=== PATIENT | female | born 1975 | race American Indian/Alaskan Native ===

== ENCOUNTER 2018-10-06 01:38 | Emergency (ER) | payer MEDICAID, OTHER ==
[2018-10-06 01:45] VITALS: BP 141/90
[2018-10-06] MEDS ORDERED: DECADRON IV ONE (03:30)
[2018-10-06] MEDS ORDERED: BICILLIN L-A IM STA (03:30)
[2018-10-06] MEDS ORDERED: NACL 0.9% 1000 ML 1,000 ML IV ONE ×2 (03:30→05:00)
--- NOTE | 2018-10-06 03:34 | Emergency Department Report ---
ED General Adult HPI - General Chief complaint: Sore Throat Stated complaint: PAIN IN THROAT Time Seen by Provider: 10/06/18 03:22 Source: patient Mode of arrival: Ambulatory Limitations: No Limitations - History of Present Illness Severity scale (0 -10): 10 - Related Data Home Medications Medication Instructions Recorded Confirmed Last Taken Ferrous Sulfate [Feosol] 325 mg PO BID 09/05/16 09/05/16 09/05/16 Gabapentin [Neurontin] 800 mg PO Q8H 09/05/16 09/05/16 09/05/16 Lisinopril/Hydrochlorothiazide 1 tab PO QDAY 09/05/16 09/05/16 09/05/16 [Zestoretic 20-25 mg] Tizanidine HCl [tiZANidine] 4 mg PO 09/05/16 09/05/16 amLODIPine [Norvasc] 10 mg PO DAILY 09/05/16 09/05/16 09/05/16 Previous Rx's Medication Instructions Recorded Last Taken Type Ondansetron [Zofran TAB] 4 mg PO Q8HR PRN #10 tablet 09/05/16 Unknown Rx Chlorhexidine Mouthwash [Peridex] 15 ml MM BID #473 bottle 10/06/18 Unknown Rx Lidocaine Viscous 2% 5 ml MM Q3H PRN #120 udc 10/06/18 Unknown Rx Allergies Allergy/AdvReac Type Severity Reaction Status Date / Time No Known Allergies Allergy Unverified 10/28/13 09:04 ED Review of Systems ROS: Stated complaint: PAIN IN THROAT Other details as noted in HPI Constitutional: denies: chills, fever Eyes: denies: eye pain, eye discharge, vision change ENT: throat pain. denies: ear pain Respiratory: denies: cough, shortness of breath, wheezing Cardiovascular: denies: chest pain, palpitations Endocrine: no symptoms reported. denies: flushing, intolerance to cold, intolerance to heat, increased thirst, increased urine, unexplained weight gain Gastrointestinal: denies: abdominal pain, nausea, diarrhea Genitourinary: denies: urgency, dysuria, discharge Musculoskeletal: denies: back pain, joint swelling, arthralgia Skin: denies: rash, lesions Neurological: denies: headache, weakness, paresthesias Psychiatric: denies: anxiety, depression Hematological/Lymphatic: denies: easy bleeding, easy bruising ED Past Medical Hx - Past Medical History Previous Medical History?: Yes Hx Hypertension: Yes - Surgical History Past Surgical History?: Yes Additional Surgical History: spinal surgery, 2010 - Social History Smoking Status: Never Smoker Substance Use Type: None - Medications Home Medications: Home Medications Medication Instructions Recorded Confirmed Last Taken Type Ferrous Sulfate [Feosol] 325 mg PO BID 09/05/16 09/05/16 09/05/16 History Gabapentin [Neurontin] 800 mg PO Q8H 09/05/16 09/05/16 09/05/16 History Lisinopril/Hydrochlorothiazide 1 tab PO QDAY 09/05/16 09/05/16 09/05/16 History [Zestoretic 20-25 mg] Ondansetron [Zofran TAB] 4 mg PO Q8HR PRN #10 tablet 09/05/16 Unknown Rx Tizanidine HCl [tiZANidine] 4 mg PO 09/05/16 09/05/16 History amLODIPine [Norvasc] 10 mg PO DAILY 09/05/16 09/05/16 09/05/16 History Chlorhexidine Mouthwash [Peridex] 15 ml MM BID #473 bottle 10/06/18 Unknown Rx Lidocaine Viscous 2% 5 ml MM Q3H PRN #120 udc 10/06/18 Unknown Rx ED Physical Exam - General Limitations: No Limitations General appearance: alert, in no apparent distress - Head Head exam: Present: atraumatic, normocephalic - Eye Eye exam: Present: normal appearance, PERRL, EOMI Pupils: Present: normal accommodation - ENT ENT exam: Present: normal exam, normal orophraynx, mucous membranes moist, TM's normal bilaterally, other (predilection red with some swelling and a daily noted. Airway is patent. Tongue and uvula are midline. No abscess formation is noted.) - Neck Neck exam: Present: normal inspection, tenderness, lymphadenopathy. Absent: meningismus - Respiratory Respiratory exam: Present: normal lung sounds bilaterally. Absent: respiratory distress, rales, rhonchi, accessory muscle use, decreased breath sounds - Cardiovascular Cardiovascular Exam: Present: regular rate, normal rhythm. Absent: systolic murmur, diastolic murmur, rubs, gallop - GI/Abdominal GI/Abdominal exam: Present: soft, normal bowel sounds. Absent: distended, tenderness, rebound, hyperactive bowel sounds, hypoactive bowel sounds, bruit - Extremities Exam Extremities exam: Present: normal inspection, full ROM, normal capillary refill - Back Exam Back exam: Present: normal inspection, full ROM. Absent: CVA tenderness (R), CVA tenderness (L) - Neurological Exam Neurological exam: Present: alert, oriented X3, CN II-XII intact, normal gait - Psychiatric Psychiatric exam: Present: normal affect, normal mood. Absent: flat affect, manic - Skin Skin exam: Present: warm, dry, intact, normal color. Absent: rash ED Course Vital Signs 10/06/18 01:43 Temperature 99.1 F Pulse Rate 136 H Respiratory 18 Rate Blood Pressure 141/90 O2 Sat by Pulse 100 Oximetry Critical care attestation.: If time is entered above; I have spent that time in minutes in the direct care of this critically ill patient, excluding procedure time. ED Disposition Clinical Impression: Exudative pharyngitis Disposition: DC-01 TO HOME OR SELFCARE Is pt being admited?: No Does the pt Need Aspirin: No Condition: Stable Instructions: Pharyngitis (ED) Referrals: STEVEN FLORES MD [Primary Care Provider] - 3-5 Days
--- NOTE | 2018-10-06 04:57 | Emergency Department Report ---
Blank Doc - Documentation Documentation: 43-year-old -H[place] female with a past medical history of hypertension and deficiency anemia. Presents to the emergency department complaining of a few day history of progressively worsening odynophagia and dysphagia which is worsening with eating and with rest. Pain is dull and throbbing and nonradiating. Does have sick contacts, denies any foreign travel. No nausea, vomiting, sweats, chills, hemoptysis, hematemesis, hematochezia. No voice change.
[2018-10-06] MEDS ORDERED: TORADOL IV ONE (05:57)
[2018-10-06] MEDS ORDERED: TORADOL ONE (05:57)
== END 2018-10-06 06:05 | disposition home or self-care (01) ==
LOC: ED 01:38
DX: J02.9 Acute pharyngitis, unspecified (principal); I10 Essential (primary) hypertension
CPT/HCPCS: 87430; 96372; 96374; 96375; 99283; J0561; J1100; J1885; J7030

== ENCOUNTER 2019-09-10 14:27 | Emergency (ER) | payer MEDICAID ==
--- NOTE | 2019-09-10 14:41 | Event Note ---
ED Screening Note Date of service: 09/10/19 Time: 14:37 ED Screening Note: This is a 44 y.o. F. that presents to the ER after syncopal episode at home after grocery shopping. PMH pre-diabetes, HTN, anemia, and chronic back pain This initial assessment/diagnostic orders/clinical plan/treatment(s) is/are subject to change based on patients health status, clinical progression and re- assessment by fellow clinical providers in the ED. Further treatment and workup at subsequent clinical providers discretion. Patient/guardian urged not to elope from the ED as their condition may be serious if not clinically assessed and managed. Initial orders include: Labs Orthostatic VS EKG
[2019-09-10] MEDS ORDERED: SODIUM CHLORIDE 0.9% 1000 ML 1,000 ML IV ONE ×4 (14:49→16:49)
[2019-09-10] MEDS ORDERED: ONDANSETRON 4 MG/2 ML INJ IV ONE (14:49)
--- NOTE | 2019-09-10 14:52 | Emergency Department Report ---
ED General Adult HPI - General Chief complaint: Syncope Stated complaint: N/V/WEAKNESS Time Seen by Provider: 09/10/19 14:37 Source: patient Mode of arrival: Wheelchair Limitations: No Limitations - History of Present Illness Initial comments: Patient is a 44-year-old F [place] female who is presenting status post syncopal episode. Patient states that she woke up feeling fine this morning. When she went to the grocery store and while there began feeling weakness and dizziness. When she got back home she sat down and was feeling extremely fatigued. She tried to get up at one point and her mother noted that she had a syncopal episode. Patient had one episode of nausea vomiting after this episode. Paramedics were called to transport patient to the emergency department. Patient denies any fever chills cough cold congestion or abdominal pain. Patient states she has not had any signs of infection to her knowledge. Patient does have a history of hypertension and anemia however she states that she does not have a history of heavy periods and is not on her menses currently. Patient states she does not know why she has a history of anemia but that she is just on iron pills. Patient denies overdosing on her blood pressure medications. Patient states she has some persistent shortness of breath at this time but in general just feels very weak. Severity scale (0 -10): 0 - Related Data Home Medications Medication Instructions Recorded Confirmed Last Taken Ferrous Sulfate [Feosol] 325 mg PO BID 09/05/16 09/05/16 09/05/16 Gabapentin [Neurontin] 800 mg PO Q8H 09/05/16 09/05/16 09/05/16 Lisinopril/Hydrochlorothiazide 1 tab PO QDAY 09/05/16 09/05/16 09/05/16 [Zestoretic 20-25 mg] Tizanidine HCl [tiZANidine] 4 mg PO 09/05/16 09/05/16 amLODIPine [Norvasc] 10 mg PO DAILY 09/05/16 09/05/16 09/05/16 Previous Rx's Medication Instructions Recorded Last Taken Type Ondansetron [Zofran TAB] 4 mg PO Q8HR PRN #10 tablet 09/05/16 Unknown Rx Chlorhexidine Mouthwash [Peridex] 15 ml MM BID #473 bottle 10/06/18 Unknown Rx Lidocaine Viscous 2% 5 ml MM Q3H PRN #120 udc 10/06/18 Unknown Rx Allergies Allergy/AdvReac Type Severity Reaction Status Date / Time No Known Allergies Allergy Unverified 10/28/13 09:04 ED Review of Systems ROS: Stated complaint: N/V/WEAKNESS Other details as noted in HPI Comment: All other systems reviewed and negative ED Past Medical Hx - Past Medical History Previous Medical History?: Yes Hx Hypertension: Yes Hx Diabetes: Yes (pre) - Surgical History Past Surgical History?: Yes Additional Surgical History: spinal surgery, 2009 - Social History Smoking Status: Never Smoker Substance Use Type: None - Medications Home Medications: Home Medications Medication Instructions Recorded Confirmed Last Taken Type Ferrous Sulfate [Feosol] 325 mg PO BID 09/05/16 09/05/16 09/05/16 History Gabapentin [Neurontin] 800 mg PO Q8H 09/05/16 09/05/16 09/05/16 History Lisinopril/Hydrochlorothiazide 1 tab PO QDAY 09/05/16 09/05/16 09/05/16 History [Zestoretic 20-25 mg] Ondansetron [Zofran TAB] 4 mg PO Q8HR PRN #10 tablet 09/05/16 Unknown Rx Tizanidine HCl [tiZANidine] 4 mg PO 09/05/16 09/05/16 History amLODIPine [Norvasc] 10 mg PO DAILY 09/05/16 09/05/16 09/05/16 History Chlorhexidine Mouthwash [Peridex] 15 ml MM BID #473 bottle 10/06/18 Unknown Rx Lidocaine Viscous 2% 5 ml MM Q3H PRN #120 udc 10/06/18 Unknown Rx ED Physical Exam - General Limitations: No Limitations General appearance: alert, lethargic, other (Appears pale) - Head Head exam: Present: atraumatic, normocephalic - Eye Eye exam: Present: normal appearance, PERRL, EOMI - ENT ENT exam: Present: mucous membranes moist - Neck Neck exam: Present: normal inspection - Respiratory Respiratory exam: Present: normal lung sounds bilaterally. Absent: respiratory distress, wheezes, rales, rhonchi - Cardiovascular Cardiovascular Exam: Present: regular rate, normal rhythm, normal heart sounds. Absent: systolic murmur, diastolic murmur, rubs, gallop - GI/Abdominal GI/Abdominal exam: Present: soft, normal bowel sounds. Absent: distended, tenderness, guarding, rebound - Extremities Exam Extremities exam: Present: normal inspection - Back Exam Back exam: Present: normal inspection - Neurological Exam Neurological exam: Present: alert, oriented X3 - Psychiatric Psychiatric exam: Present: normal affect, normal mood - Skin Skin exam: Present: warm, dry, intact, normal color. Absent: rash ED Course Vital Signs 09/10/19 09/10/19 09/10/19 14:32 15:43 16:00 Temperature 97.6 F 98.6 F 98.5 F Pulse Rate 72 62 64 Respiratory 18 16 16 Rate Blood Pressure 66/40 78/62 80/62 [Left] Blood Pressure 82/40 [Right] O2 Sat by Pulse 98 96 96 Oximetry 09/10/19 09/10/19 16:56 18:52 Temperature Pulse Rate 74 80 Respiratory 16 16 Rate Blood Pressure 105/53 130/62 [Left] Blood Pressure [Right] O2 Sat by Pulse 95 95 Oximetry ED Medical Decision Making - Lab Data Result diagrams: 09/10/19 15:08 09/10/19 15:08 Lab Results 09/10/19 09/10/19 09/10/19 Range/Units 14:43 15:08 15:08 WBC 8.2 (4.5-11.0) K/mm3 RBC 3.98 (3.65-5.03) M/mm3 Hgb 8.1 L (10.1-14.3) gm/dl Hct 26.7 L (30.3-42.9) % MCV 67 L (79-97) fl MCH 20 L (28-32) pg MCHC 30 (30-34) % RDW 21.0 H (13.2-15.2) % Plt Count 417 (140-440) K/mm3 Lymph % (Auto) 25.3 (13.4-35.0) % Glades % (Auto) 6.0 (0.0-7.3) % Eos % (Auto) 1.3 (0.0-4.3) % Baso % (Auto) 0.4 (0.0-1.8) % Lymph # 2.1 (1.2-5.4) K/mm3 Glades # 0.5 (0.0-0.8) K/mm3 Eos # 0.1 (0.0-0.4) K/mm3 Baso # 0.0 (0.0-0.1) K/mm3 Seg Neutrophils % 67.0 (40.0-70.0) % Seg Neutrophils # 5.5 (1.8-7.7) K/mm3 Sodium 138 (137-145) mmol/L Potassium 3.3 L (3.6-5.0) mmol/L Chloride 97.6 L (98-107) mmol/L Carbon Dioxide 26 (22-30) mmol/L Anion Gap 18 mmol/L BUN 14 (7-17) mg/dL Creatinine 1.6 H (0.7-1.2) mg/dL Estimated GFR 43 ml/min BUN/Creatinine Ratio 9 % Glucose 104 H (65-100) mg/dL POC Glucose 118 H (70-105) Calcium 8.7 (8.4-10.2) mg/dL Total Bilirubin 0.20 (0.1-1.2) mg/dL AST 13 (5-40) units/L ALT < 5 L (7-56) units/L Alkaline Phosphatase 101 (35-129) units/L Total Protein 7.3 (6.3-8.2) g/dL Albumin 3.8 L (3.9-5) g/dL Albumin/Globulin Ratio 1.1 % HCG, Qual (Negative) Urine Color (Yellow) Urine Turbidity (Clear) Urine pH (5.0-7.0) Ur Specific [place] (1.003-1.030) Urine Protein (Negative) mg/dL Urine Glucose (UA) (Negative) mg/dL Urine Ketones (Negative) mg/dL Urine Blood (Negative) Urine Nitrite (Negative) Urine Bilirubin (Negative) Urine Urobilinogen (<2.0) mg/dL Ur Leukocyte Esterase (Negative) Urine WBC (Auto) (0.0-6.0) /HPF Urine RBC (Auto) (0.0-6.0) /HPF U Epithel Cells (Auto) (0-13.0) /HPF 09/10/19 09/10/19 Range/Units 15:08 18:50 WBC (4.5-11.0) K/mm3 RBC (3.65-5.03) M/mm3 Hgb (10.1-14.3) gm/dl Hct (30.3-42.9) % MCV (79-97) fl MCH (28-32) pg MCHC (30-34) % RDW (13.2-15.2) % Plt Count (140-440) K/mm3 Lymph % (Auto) (13.4-35.0) % Glades % (Auto) (0.0-7.3) % Eos % (Auto) (0.0-4.3) % Baso % (Auto) (0.0-1.8) % Lymph # (1.2-5.4) K/mm3 Glades # (0.0-0.8) K/mm3 Eos # (0.0-0.4) K/mm3 Baso # (0.0-0.1) K/mm3 Seg Neutrophils % (40.0-70.0) % Seg Neutrophils # (1.8-7.7) K/mm3 Sodium (137-145) mmol/L Potassium (3.6-5.0) mmol/L Chloride (98-107) mmol/L Carbon Dioxide (22-30) mmol/L Anion Gap mmol/L BUN (7-17) mg/dL Creatinine (0.7-1.2) mg/dL Estimated GFR ml/min BUN/Creatinine Ratio % Glucose (65-100) mg/dL POC Glucose (70-105) Calcium (8.4-10.2) mg/dL Total Bilirubin (0.1-1.2) mg/dL AST (5-40) units/L ALT (7-56) units/L Alkaline Phosphatase (35-129) units/L Total Protein (6.3-8.2) g/dL Albumin (3.9-5) g/dL Albumin/Globulin Ratio % HCG, Qual Negative (Negative) Urine Color Colorless (Yellow) Urine Turbidity Clear (Clear) Urine pH 5.0 (5.0-7.0) Ur Specific [place] 1.003 (1.003-1.030) Urine Protein <15 mg/dl (Negative) mg/dL Urine Glucose (UA) Neg (Negative) mg/dL Urine Ketones Tr (Negative) mg/dL Urine Blood Sm (Negative) Urine Nitrite Neg (Negative) Urine Bilirubin Neg (Negative) Urine Urobilinogen < 2.0 (<2.0) mg/dL Ur Leukocyte Esterase Neg (Negative) Urine WBC (Auto) 1.0 (0.0-6.0) /HPF Urine RBC (Auto) < 1.0 (0.0-6.0) /HPF U Epithel Cells (Auto) < 1.0 (0-13.0) /HPF Vital Signs 09/10/19 09/10/19 09/10/19 14:32 15:43 16:00 Temperature 97.6 F 98.6 F 98.5 F Pulse Rate 72 62 64 Respiratory 18 16 16 Rate Blood Pressure 66/40 78/62 80/62 [Left] Blood Pressure 82/40 [Right] O2 Sat by Pulse 98 96 96 Oximetry 09/10/19 09/10/19 16:56 18:52 Temperature Pulse Rate 74 80 Respiratory 16 16 Rate Blood Pressure 105/53 130/62 [Left] Blood Pressure [Right] O2 Sat by Pulse 95 95 Oximetry - EKG Data -: EKG Interpreted by Mn EKG shows normal: sinus rhythm, axis, intervals, QRS complexes, ST-T waves Rate: normal - EKG Data Interpretation: normal EKG - Medical Decision Making Patient was given 4 L of normal saline over several hours and is feeling much improved. Patient's laboratory studies are unremarkable except for creatinine 1.6. Asked the patient multiple times whether she can think of any reason she would be dehydrated. She states she does not have any dark tarry stools she has not been having nausea vomiting or diarrhea she states she has been eating and drinking well. Patient ultimately is feeling better and her blood pressures stabilized and she will be discharged home with follow-up with primary care physician. Critical care attestation.: If time is entered above; I have spent that time in minutes in the direct care of this critically ill patient, excluding procedure time. ED Disposition Clinical Impression: Dehydration, Orthostatic syncope Hypotension Qualifiers: Hypotension type: orthostatic hypotension Qualified Code(s): I95.1 - Orthostatic hypotension Disposition: -01 TO HOME OR SELFCARE Is pt being admited?: No Does the pt Need Aspirin: No Condition: Stable Instructions: Syncope (ED), Dehydration (ED) Referrals: LISE RODRIGEZ MD [Primary Care Provider] - 3-5 Days Time of Disposition: 19:55
[2019-09-10 16:14] LABS: Basophils % (Auto) 0.4 % (0.0-1.8); Eosinophils # (Auto) 0.1 K/mm3 (0.0-0.4); Eosinophils % (Auto) 1.3 % (0.0-4.3); Hematocrit 26.7 % (30.3-42.9); Hemoglobin 8.1 gm/dl (10.1-14.3); Lymphocytes # (Auto) 2.1 K/mm3 (1.2-5.4); Lymphocytes % (Auto) 25.3 % (13.4-35.0); Mean Corpuscular HGB Conc 30 % (30-34); Monocytes # (Auto) 0.5 K/mm3 (0.0-0.8); Platelet Count 417 K/mm3 (140-440); Red Blood Count 3.98 M/mm3 (3.65-5.03)
[2019-09-10 16:24] LABS: Mean Corpuscular Volume 67 fl (79-97)
[2019-09-10 16:38] LABS: Albumin 3.8 g/dL (3.9-5); BUN/Creatinine Ratio 9; Blood Urea Nitrogen 14 mg/dL (7-17); Calcium 8.7 mg/dL (8.4-10.2); Hemolysis Index 1
[2019-09-10 16:39] LABS: Alanine Aminotransferase < 5 units/L (7-56)
[2019-09-10] MEDS ORDERED: POTASSIUM CHLORIDE ER 20 MEQ TAB PO ONE (16:49)
[2019-09-10 18:53] VITALS: BP 130/62
[2019-09-10 19:15] LABS: Bilirubin,Urine NEG (Negative); Blood,Urine SM (Negative); Color,Urine Colorless (Yellow); Protein,Urine <15 mg/dL mg/dL (Negative); RBC,Urine < 1.0 /HPF (0.0-6.0); Urobilinogen,Urine < 2.0 mg/dL (<2.0)
== END 2019-09-10 21:14 | disposition home or self-care (01) ==
LOC: ED 14:27
DX: E86.0 Dehydration (principal); I95.1 Orthostatic hypotension; R73.03 Prediabetes; I10 Essential (primary) hypertension; D64.9 Anemia, unspecified; Z98.890 Other specified postprocedural states; Z79.899 Other long term (current) drug therapy
CPT/HCPCS: 36415; 80053; 81001; 82962; 84703; 85025; 93005; 93010; 96361; 96374; 99284; J2405; J7030

== ENCOUNTER 2021-08-04 16:15 | Emergency (ER) | payer MEDICAID, OTHER ==
[2021-08-04 16:31] VITALS: BP 143/103
[2021-08-04] MEDS ORDERED: KETOROLAC 60 MG/2 ML INJ IM ONE (17:18)
[2021-08-04] MEDS ORDERED: HYDROcodone/ACETAMINOPHEN 5-325 MG TAB PO ONE (17:18)
--- NOTE | 2021-08-04 17:23 | Emergency Department Report ---
ED General Adult HPI - General Chief complaint: Shoulder Injury Stated complaint: LT SHOULDER PAIN Time Seen by Provider: 08/04/21 17:18 Source: patient Mode of arrival: Ambulatory Limitations: Physical Limitation - History of Present Illness Initial comments: 46-year-old -[place] female patient presents with complaints of left shoulder pain upon waking this morning. She denies any injuries and states she tried ibuprofen without relief of her symptoms. Patient rates her pain as a 10/10 in severity. She denies any shortness of breath, cough, chest pain, or past medical history. NKDA per patient. Pain worsens with movement and to touch. Patient also denies any neck pain/stiffness or fever/chills/sweats or headaches. Severity scale (0 -10): 10 - Related Data Home Medications Medication Instructions Recorded Confirmed Last Taken Ferrous Sulfate [Feosol 325 MG tab] 325 mg PO DAILY 09/05/16 03/05/20 09/05/16 Gabapentin [Neurontin] 800 mg PO Q8H 09/05/16 03/05/20 09/05/16 Tizanidine HCl [tiZANidine] 6 mg PO DAILY 09/05/16 03/05/20 09/05/16 DULoxetine [Cymbalta] 30 mg PO DAILY 03/05/20 03/05/20 Unknown Previous Rx's Medication Instructions Recorded Last Taken Type lisinopriL [Zestril TAB] 20 mg PO QDAY #30 tablet 03/06/20 Unknown Rx Naproxen 500 mg PO BID PRN #20 tab 08/04/21 Unknown Rx methocarbamoL [Methocarbamol] 750 - 1,500 mg PO TID PRN #30 tab 08/04/21 Unknown Rx predniSONE [Deltasone] 20 mg PO BID 3 Days #6 tab 08/04/21 Unknown Rx Allergies Allergy/AdvReac Type Severity Reaction Status Date / Time No Known Allergies Allergy Verified 08/04/21 17:37 ED Review of Systems ROS: Stated complaint: LT SHOULDER PAIN Other details as noted in HPI Constitutional: denies: chills, diaphoresis, fever, malaise, weakness Respiratory: denies: cough, shortness of breath Cardiovascular: denies: chest pain Gastrointestinal: denies: abdominal pain Genitourinary: denies: urgency Neurological: denies: headache, weakness, numbness, paresthesias ED Past Medical Hx - Past Medical History Hx Hypertension: Yes Hx Congestive Heart Failure: No Hx Diabetes: Yes (pre) Hx Asthma: No Hx COPD: No - Surgical History Additional Surgical History: spinal surgery, 2010 - Social History Smoking Status: Never Smoker - Medications Home Medications: Home Medications Medication Instructions Recorded Confirmed Last Taken Type Ferrous Sulfate [Feosol 325 MG tab] 325 mg PO DAILY 09/05/16 03/05/20 09/05/16 History Gabapentin [Neurontin] 800 mg PO Q8H 09/05/16 03/05/20 09/05/16 History Tizanidine HCl [tiZANidine] 6 mg PO DAILY 09/05/16 03/05/20 09/05/16 History DULoxetine [Cymbalta] 30 mg PO DAILY 03/05/20 03/05/20 Unknown History lisinopriL [Zestril TAB] 20 mg PO QDAY #30 tablet 03/06/20 Unknown Rx Naproxen 500 mg PO BID PRN #20 tab 08/04/21 Unknown Rx methocarbamoL [Methocarbamol] 750 - 1,500 mg PO TID PRN #30 tab 08/04/21 Unknown Rx predniSONE [Deltasone] 20 mg PO BID 3 Days #6 tab 08/04/21 Unknown Rx ED Physical Exam - General Limitations: Physical Limitation General appearance: alert, in no apparent distress - Head Head exam: Present: atraumatic, normocephalic - Eye Eye exam: Present: normal appearance - Neck Neck exam: Present: tenderness (Tenderness to palpation noted to left trapezius muscle without obvious deformity or swelling or skin changes noted; no vertebral tenderness or obvious deformities noted), full ROM - Respiratory Respiratory exam: Present: normal lung sounds bilaterally, chest wall tenderness (Mild left upper). Absent: respiratory distress - Cardiovascular Cardiovascular Exam: Present: regular rate, normal rhythm, normal heart sounds - Expanded Upper Extremity Exam Left Shoulder Exam: Present: tenderness over AC joint. Absent: full ROM, tenderness, swelling, abrasion, laceration, deformity, crepidus, dislocation, erythema Upper Arm exam: Present: normal inspection Forearm Wrist exam: Present: ecchymosis Vascular: Absent: vascular compromise - Neurological Exam Neurological exam: Present: alert, oriented X3 - Psychiatric Psychiatric exam: Present: normal affect, normal mood - Skin Skin exam: Present: warm, dry, intact, normal color. Absent: rash ED Course Vital Signs 08/04/21 16:31 Temperature 98.8 F Pulse Rate 89 Respiratory 16 Rate Blood Pressure 143/103 [Left] O2 Sat by Pulse 98 Oximetry ED Medical Decision Making - Radiology Data Radiology results: report reviewed cc: JOAQUIN MCCAIN DO Fluoro Time In Minutes: Left shoulder, 3 views HISTORY: Pain COMPARISON: None FINDINGS: There is mild osteoarthritis of the left AC joint. Subacromial space is preserved. No acute fracture or malalignment. No focal soft tissue abnormality. Visualized left lung is clear. IMPRESSION: Mild left AC osteoarthritis. No acute process. - Medical Decision Making 46-year-old -[place] female patient presents with complaints of left shoulder pain upon waking this morning. She denies any injuries and states she tried ibuprofen without relief of her symptoms. Patient rates her pain as a 10/10 in severity. She denies any shortness of breath, cough, chest pain, or past medical history. NKDA per patient. Pain worsens with movement and to touch. Patient also denies any neck pain/stiffness or fever/chills/sweats or headaches. X-ray shows left AC osteoarthritis without other acute findings. She does have tenderness to palpation over the AC joint on exam without obvious deformities. Patient has full range of motion post meds given here in the ED and states her pain has improved. Patient placed in a shoulder sling and advised to follow-up with primary care and orthopedics. She is otherwise well-appearing and stable for discharge home. Strict return precautions were discussed in detail with patient who verbalizes understanding Critical care attestation.: If time is entered above; I have spent that time in minutes in the direct care of this critically ill patient, excluding procedure time. ED Disposition Clinical Impression: Trapezius muscle spasm, Shoulder arthritis, Elevated blood pressure reading without diagnosis of hypertension Disposition: HOME / SELF CARE / HOMELESS Is pt being admited?: No Condition: Stable Instructions: Muscle Cramps and Spasms, Arthritis, [id number], Hypertension, Adult, [id number] Prescriptions: predniSONE [Deltasone] 20 mg PO BID 3 Days #6 tab methocarbamoL [Methocarbamol] 750 - 1,500 mg PO TID PRN #30 tab PRN Reason: muscle spasm/tightness Naproxen 500 mg PO BID PRN #20 tab PRN Reason: pain Referrals: [facility] [Provider Group] - as needed [facility] [Provider Group] - 3-5 Days (follow up, blood pressure recheck ) Forms: Work/School Release Form(ED)
--- NOTE | 2021-08-04 17:28 | XRay Report ---
Left shoulder, 3 views HISTORY: Pain COMPARISON: None FINDINGS: There is mild osteoarthritis of the left AC joint. Subacromial space is preserved. No acute fracture or malalignment. No focal soft tissue abnormality. Visualized left lung is clear. IMPRESSION: Mild left AC osteoarthritis. No acute process. Signer Name: Bhargav Camacho MD Signed: 08/04/2021 5:23 PM Workstation Name: [facility] [facility] [id number]
== END 2021-08-04 19:36 | disposition home or self-care (01) ==
LOC: ED 16:15
DX: M62.838 Other muscle spasm (principal); M19.019 Primary osteoarthritis, unspecified shoulder; R03.0 Elevated blood-pressure reading, without diagnosis of hypertension; I10 Essential (primary) hypertension; E11.9 Type 2 diabetes mellitus without complications; Z98.890 Other specified postprocedural states
CPT/HCPCS: 73030; 96372; 99283; J1885

== ENCOUNTER 2022-01-04 18:46 | Emergency (ER) | payer MEDICAID ==
[2022-01-04 20:14] VITALS: BP 155/99
--- NOTE | 2022-01-04 23:19 | Emergency Department Report ---
ED General Adult HPI - General Chief complaint: Extremity Injury, Upper Stated complaint: SHOULDER PAIN/VOMITING Time Seen by Provider: 01/04/22 23:11 Source: patient Mode of arrival: Ambulatory Limitations: No Limitations - History of Present Illness Initial comments: 46-year-old F Greek female presents emerged part with complaint of 1 week history of atraumatic left shoulder pain that is worse with palpation and range of motion. She reports no numbness, no tingling, no chest pain, palpitations. No shortness of breath. -: Gradual Radiation: non-radiation Quality: aching, dull Consistency: constant Improves with: none Worsens with: none Associated Symptoms: denies other symptoms Treatments Prior to Arrival: none - Related Data Home Medications Medication Instructions Recorded Confirmed Last Taken Ferrous Sulfate [Feosol 325 MG tab] 325 mg PO DAILY 09/05/16 03/05/20 09/05/16 Gabapentin [Neurontin] 800 mg PO Q8H 09/05/16 03/05/20 09/05/16 Tizanidine HCl [tiZANidine] 6 mg PO DAILY 09/05/16 03/05/20 09/05/16 DULoxetine [Cymbalta] 30 mg PO DAILY 03/05/20 03/05/20 Unknown Previous Rx's Medication Instructions Recorded Last Taken Type lisinopriL [Zestril TAB] 20 mg PO QDAY #30 tablet 03/06/20 Unknown Rx Naproxen 500 mg PO BID PRN #20 tab 08/04/21 Unknown Rx methocarbamoL [Methocarbamol] 750 - 1,500 mg PO TID PRN #30 tab 08/04/21 Unknown Rx predniSONE [Deltasone] 20 mg PO BID 3 Days #6 tab 08/04/21 Unknown Rx Ketorolac [Toradol] 10 mg PO Q6H PRN #15 tablet 01/04/22 Unknown Rx Ondansetron [Zofran ODT TAB] 8 mg PO Q12HR #14 tab.rapdis 01/04/22 Unknown Rx Allergies Allergy/AdvReac Type Severity Reaction Status Date / Time No Known Allergies Allergy Verified 08/04/21 17:37 ED Review of Systems ROS: Stated complaint: SHOULDER PAIN/VOMITING Other details as noted in HPI Comment: All other systems reviewed and negative ED Past Medical Hx - Past Medical History Hx Hypertension: Yes Hx Congestive Heart Failure: No Hx Diabetes: Yes (pre) Hx Asthma: No Hx COPD: No - Surgical History Additional Surgical History: spinal surgery, 2010 - Social History Smoking Status: Never Smoker - Medications Home Medications: Home Medications Medication Instructions Recorded Confirmed Last Taken Type Ferrous Sulfate [Feosol 325 MG tab] 325 mg PO DAILY 09/05/16 03/05/20 09/05/16 History Gabapentin [Neurontin] 800 mg PO Q8H 09/05/16 03/05/20 09/05/16 History Tizanidine HCl [tiZANidine] 6 mg PO DAILY 09/05/16 03/05/20 09/05/16 History DULoxetine [Cymbalta] 30 mg PO DAILY 03/05/20 03/05/20 Unknown History lisinopriL [Zestril TAB] 20 mg PO QDAY #30 tablet 03/06/20 Unknown Rx Naproxen 500 mg PO BID PRN #20 tab 08/04/21 Unknown Rx methocarbamoL [Methocarbamol] 750 - 1,500 mg PO TID PRN #30 tab 08/04/21 Unknown Rx predniSONE [Deltasone] 20 mg PO BID 3 Days #6 tab 08/04/21 Unknown Rx Ketorolac [Toradol] 10 mg PO Q6H PRN #15 tablet 01/04/22 Unknown Rx Ondansetron [Zofran ODT TAB] 8 mg PO Q12HR #14 tab.rapdis 01/04/22 Unknown Rx ED Physical Exam - General Limitations: No Limitations General appearance: alert, in no apparent distress - Head Head exam: Present: atraumatic, normocephalic - Eye Eye exam: Present: normal appearance, PERRL, EOMI Pupils: Present: normal accommodation - ENT ENT exam: Present: normal exam, mucous membranes moist - Neck Neck exam: Present: normal inspection - Respiratory Respiratory exam: Present: normal lung sounds bilaterally. Absent: respiratory distress, wheezes, rales - Cardiovascular Cardiovascular Exam: Present: regular rate, normal rhythm. Absent: systolic murmur, diastolic murmur, rubs, gallop - GI/Abdominal GI/Abdominal exam: Present: soft, normal bowel sounds - Extremities Exam Extremities exam: Present: normal inspection, tenderness, normal capillary refill - Expanded Upper Extremity Exam Left Shoulder Exam: Present: tenderness, tenderness over AC joint, other (Pain with Maxwell test pain with [facility] test pain with Neer's test). Absent: swelling, dislocation Upper Arm exam: Present: normal inspection Elbow exam: Present: normal inspection Forearm Wrist exam: Present: normal inspection Hand Wrist exam: Present: normal inspection - Back Exam Back exam: Present: normal inspection. Absent: CVA tenderness (R), CVA tenderness (L) - Neurological Exam Neurological exam: Present: alert, oriented X3, CN II-XII intact - Psychiatric Psychiatric exam: Present: normal affect, normal mood - Skin Skin exam: Present: warm, dry, intact, normal color. Absent: rash ED Course Vital Signs 01/04/22 19:48 Temperature 98.9 F Pulse Rate 87 Respiratory 18 Rate Blood Pressure 155/99 O2 Sat by Pulse 97 Oximetry ED Medical Decision Making - Radiology Data Radiology results: report reviewed [address] [address] XRay Report Signed Patient: CHRISTINE PAPPAS MR#: [id number] : 1975 Acct:[id number] Age/Sex: 46 / F ADM Date: 01/04/22 Loc: ED Attending Dr: Ordering Physician: DAREN MEAD Date of Service: 01/04/22 Procedure(s): XR shoulder 2+V LT Accession Number(s): [id number] cc: DAREN MEAD Fluoro Time In Minutes: XR shoulder 2+V LT INDICATION / CLINICAL INFORMATION: shoulder pain COMPARISON: None available. FINDINGS: BONES / JOINT(S): No acute fracture or subluxation. No significant arthritis. SOFT TISSUES: No significant abnormality. ADDITIONAL FINDINGS: None. IMPRESSION: No acute osseous findings in the left shoulder. Signer Name: Alejandra Camacho MD Signed: 01/04/2022 11:41 PM Workstation Name: [id number] Transcribed By: JS Dictated By: ALEJANDRA CAMACHO MD Electronically Authenticated By: ALEJANDRA CAMACHO MD Signed Date/Time: 01/04/222340 DD/ 40 TD/TT: Critical care attestation.: If time is entered above; I have spent that time in minutes in the direct care of this critically ill patient, excluding procedure time. ED Disposition Clinical Impression: Nausea, Shoulder pain Disposition: HOME / SELF CARE / HOMELESS Is pt being admited?: No Does the pt Need Aspirin: No Condition: Stable Instructions: Nausea and Vomiting, Adult Prescriptions: Ketorolac [Toradol] 10 mg PO Q6H PRN #15 tablet PRN Reason: Pain Ondansetron [Zofran ODT TAB] 8 mg PO Q12HR #14 tab.katharine
--- NOTE | 2022-01-04 23:46 | XRay Report ---
XR shoulder 2+V LT INDICATION / CLINICAL INFORMATION: shoulder pain COMPARISON: None available. FINDINGS: BONES / JOINT(S): No acute fracture or subluxation. No significant arthritis. SOFT TISSUES: No significant abnormality. ADDITIONAL FINDINGS: None. IMPRESSION: No acute osseous findings in the left shoulder. Signer Name: Bhargav Camacho MD Signed: 01/04/2022 11:41 PM Workstation Name: [id number]
--- NOTE | 2022-01-05 13:32 | Electrocardiograph Report ---
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
== END 2022-01-05 02:47 | disposition home or self-care (01) ==
LOC: ED 18:46
DX: M25.512 Pain in left shoulder (principal); R11.0 Nausea; I10 Essential (primary) hypertension; E11.9 Type 2 diabetes mellitus without complications; Z79.899 Other long term (current) drug therapy
CPT/HCPCS: 93005; 99283

== ENCOUNTER 2022-02-21 18:33 | Emergency (ER) | payer MEDICAID ==
[2022-02-21] MEDS ORDERED: dexAMETHasone 20 MG/5 ML VIAL IM ONE (23:06)
[2022-02-21] MEDS ORDERED: oxyCODONE /ACETAMINOPHEN 5-325MG TAB PO ONE (23:06)
[2022-02-21] MEDS ORDERED: ONDANSETRON 4 MG ODT TAB PO ONE (23:06)
[2022-02-21] MEDS ORDERED: KETOROLAC 60 MG/2 ML INJ IM ONE (23:06)
--- NOTE | 2022-02-22 01:17 | Emergency Department Report ---
ED Back Pain/Injury HPI - General Chief Complaint: Back Pain/Injury Stated Complaint: LOWER BACK PAIN Source: patient Limitations: No Limitations - History of Present Illness Initial Comments: Patient is a 47-year-old female with a history of hypertension and wyt-[id number] diabetes as well as chronic low back pain who presents to the ED with acute exacerbation of her chronic low back pain for the last 2 weeks. Patient states that the pain is constant and persistent and radiates to the right leg. Patient denies fall, traumatic injury, heavy lifting, nausea and vomiting, fever, chills, dysuria, urinary frequency and urgency, numbness and tingling or weakness of lower extremities bilaterally, urinary or bowel incontinence and saddle paresthesia, chest pain and shortness of breath. MD Complaint: back pain (lower back pain) -: Gradual, week(s) (2) Similar Symptoms Previously: Yes Place: home Radiation: right leg Severity: severe Severity scale (0 -10): 8 Quality: sharp, aching Consistency: constant Improves With: none Worsens With: movement, sitting upright, walking Context: unknown, other (chronic low back pain) Associated Symptoms: denies other symptoms. denies: confusion, weakness, chest pain, numbness, difficulty walking, cough, difficulty urinating, diaphoresis, incontinence, constipation, headaches, abdominal pain, loss of appetite, malaise, nausea/vomiting, rash, seizure, shortness of breath - Related Data Home Medications Medication Instructions Recorded Confirmed Last Taken Ferrous Sulfate [Feosol 325 MG tab] 325 mg PO DAILY 09/05/16 03/05/20 09/05/16 Gabapentin [Neurontin] 800 mg PO Q8H 09/05/16 03/05/20 09/05/16 Tizanidine HCl [tiZANidine] 6 mg PO DAILY 09/05/16 03/05/20 09/05/16 DULoxetine [Cymbalta] 30 mg PO DAILY 03/05/20 03/05/20 Unknown Previous Rx's Medication Instructions Recorded Last Taken Type lisinopriL [Zestril TAB] 20 mg PO QDAY #30 tablet 03/06/20 Unknown Rx Naproxen 500 mg PO BID PRN #20 tab 08/04/21 Unknown Rx methocarbamoL [Methocarbamol] 750 - 1,500 mg PO TID PRN #30 tab 08/04/21 Unknown Rx predniSONE [Deltasone] 20 mg PO BID 3 Days #6 tab 08/04/21 Unknown Rx Ketorolac [Toradol] 10 mg PO Q6H PRN #15 tablet 01/04/22 Unknown Rx Ondansetron [Zofran ODT TAB] 8 mg PO Q12HR #14 tab.rapdis 01/04/22 Unknown Rx Ibuprofen [Motrin] 800 mg PO Q8HR PRN #30 tablet 02/22/22 Unknown Rx methOCARBAMOL [Robaxin TAB] 750 mg PO Q8H PRN #30 tab 02/22/22 Unknown Rx predniSONE [Deltasone] 20 mg PO QDAY #60 tab 02/22/22 Unknown Rx traMADoL [Ultram] 50 mg PO Q6HR PRN #12 tablet 02/22/22 Unknown Rx Allergies Allergy/AdvReac Type Severity Reaction Status Date / Time No Known Allergies Allergy Verified 08/04/21 17:37 ED Review of Systems ROS: Stated complaint: LOWER BACK PAIN Other details as noted in HPI Constitutional: denies: chills, fever Eyes: denies: eye pain, eye discharge, vision change ENT: denies: ear pain, throat pain Respiratory: denies: cough, shortness of breath, wheezing Cardiovascular: denies: chest pain, palpitations Endocrine: no symptoms reported Gastrointestinal: denies: abdominal pain, nausea, vomiting, diarrhea Genitourinary: denies: urgency, dysuria, discharge Musculoskeletal: back pain (lower back pain), arthralgia (right leg pain), myalgia. denies: joint swelling Skin: denies: rash, lesions Neurological: denies: headache, weakness, paresthesias Psychiatric: denies: anxiety, depression Hematological/Lymphatic: denies: easy bleeding, easy bruising ED Past Medical Hx - Past Medical History Hx Hypertension: Yes Hx Congestive Heart Failure: No Hx Diabetes: Yes (pre) Hx Asthma: No Hx COPD: No - Surgical History Additional Surgical History: spinal surgery, 2009 - Social History Smoking Status: Never Smoker - Medications Home Medications: Home Medications Medication Instructions Recorded Confirmed Last Taken Type Ferrous Sulfate [Feosol 325 MG tab] 325 mg PO DAILY 09/05/16 03/05/20 09/05/16 History Gabapentin [Neurontin] 800 mg PO Q8H 03/04/17 09/01/20 03/04/17 History Tizanidine HCl [tiZANidine] 6 mg PO DAILY 09/05/16 03/05/20 09/05/16 History DULoxetine [Cymbalta] 30 mg PO DAILY 03/05/20 03/05/20 Unknown History lisinopriL [Zestril TAB] 20 mg PO QDAY #30 tablet 03/06/20 Unknown Rx Naproxen 500 mg PO BID PRN #20 tab 08/04/21 Unknown Rx methocarbamoL [Methocarbamol] 750 - 1,500 mg PO TID PRN #30 tab 08/04/21 Unknown Rx predniSONE [Deltasone] 20 mg PO BID 3 Days #6 tab 08/04/21 Unknown Rx Ketorolac [Toradol] 10 mg PO Q6H PRN #15 tablet 01/04/22 Unknown Rx Ondansetron [Zofran ODT TAB] 8 mg PO Q12HR #14 tab.rapdis 01/04/22 Unknown Rx Ibuprofen [Motrin] 800 mg PO Q8HR PRN #30 tablet 02/22/22 Unknown Rx methOCARBAMOL [Robaxin TAB] 750 mg PO Q8H PRN #30 tab 02/22/22 Unknown Rx predniSONE [Deltasone] 20 mg PO QDAY #60 tab 02/22/22 Unknown Rx traMADoL [Ultram] 50 mg PO Q6HR PRN #12 tablet 02/22/22 Unknown Rx ED Physical Exam - General Limitations: No Limitations General appearance: alert, in no apparent distress - Head Head exam: Present: atraumatic, normocephalic, normal inspection - Eye Eye exam: Present: normal appearance, PERRL, EOMI Pupils: Present: normal accommodation - ENT ENT exam: Present: normal exam, normal orophraynx, mucous membranes moist, TM's normal bilaterally, normal external ear exam - Neck Neck exam: Present: normal inspection, full ROM. Absent: tenderness - Respiratory Respiratory exam: Present: normal lung sounds bilaterally. Absent: respiratory distress, wheezes, rales, rhonchi, stridor, chest wall tenderness, accessory muscle use, decreased breath sounds, prolonged expiratory - Cardiovascular Cardiovascular Exam: Present: regular rate, normal rhythm, normal heart sounds. Absent: systolic murmur, diastolic murmur, rubs, gallop - GI/Abdominal GI/Abdominal exam: Present: soft, normal bowel sounds. Absent: tenderness, guarding, rebound, hyperactive bowel sounds, hypoactive bowel sounds - Extremities Exam Extremities exam: Present: normal inspection, full ROM, tenderness (Palpable right hip tenderness), normal capillary refill. Absent: pedal edema, joint swelling, calf tenderness - Back Exam Back exam: Present: normal inspection, full ROM, tenderness (palpable lumbosacral paraspinal musculoskeletal tenderness), muscle spasm, paraspinal tenderness. Absent: CVA tenderness (R), CVA tenderness (L), vertebral tenderness, rash noted - Neurological Exam Neurological exam: Present: alert, oriented X3, CN II-XII intact, normal gait, reflexes normal - Psychiatric Psychiatric exam: Present: normal affect, normal mood - Skin Skin exam: Present: warm, dry, intact, normal color. Absent: rash ED Course Vital Signs 02/21/22 19:26 Temperature 98.7 F Pulse Rate 89 Respiratory 18 Rate Blood Pressure 210/94 O2 Sat by Pulse 100 Oximetry ED Medical Decision Making - Medical Decision Making This is a 47-year-old female with a history of hypertension and lhi-cfrpjtb-aolhgmtpp diabetes as well as chronic low back pain who presents to the ED with acute exacerbation of her chronic low back pain for the last 2 weeks. Patient states that the pain is constant and persistent and radiates to the right leg. In the ED, patient is alert and oriented x3 and is not in any distress. Patient was treated for pain in the ED. On reevaluation, patient's pain is well controlled with medications. Patient was discharged home on medications and advised to follow-up with her primary care physician in 7 to 10 days for reevaluation or return to the ED immediately if symptoms get worse. - Differential Diagnosis Sciatica; chronic back pain; muscle strain; muscle spasm; Critical care attestation.: If time is entered above; I have spent that time in minutes in the direct care of this critically ill patient, excluding procedure time. ED Disposition Clinical Impression: Spasm of muscle of lower back, Acute exacerbation of chronic low back pain Chronic low back pain with right-sided sciatica Qualifiers: Back pain laterality: right Qualified Code(s): M54.41 - Lumbago with sciatica, right side; G89.29 - Other chronic pain Disposition: HOME / SELF CARE / HOMELESS Is pt being admited?: No Does the pt Need Aspirin: No Condition: Stable Instructions: Muscle Cramps and Spasms, [id number], Sciatica, [id number], Chronic Back Pain, [id number], Chronic Back Pain Additional Instructions: Take medication with food, drink plenty of fluids, follow-up with your primary care physician in 7 to 10 days for reevaluation. Return to the ED immediately if symptoms get worse. Prescriptions: predniSONE [Deltasone] 20 mg PO QDAY #60 tab Ibuprofen [Motrin] 800 mg PO Q8HR PRN #30 tablet PRN Reason: Pain , Severe (7-10) methOCARBAMOL [Robaxin TAB] 750 mg PO Q8H PRN #30 tab PRN Reason: Muscle Spasm traMADoL [Ultram] 50 mg PO Q6HR PRN #12 tablet PRN Reason: Pain Referrals: STEVEN FLORES MD [Primary Care Provider] - 7-10 days Time of Disposition: 01:19 Print Language: GREENLAND[place]
[2022-02-22 01:57] VITALS: BP 192/97
== END 2022-02-22 01:57 | disposition home or self-care (01) ==
LOC: ED 18:33
DX: M62.830 Muscle spasm of back (principal); G89.29 Other chronic pain; M54.9 Dorsalgia, unspecified; M54.41 Lumbago with sciatica, right side; I10 Essential (primary) hypertension
CPT/HCPCS: 96372; 99282; J1100; J1885; J3490; Q0162